=== PATIENT | male | born 1960 | race Caucasian/White ===

== ENCOUNTER 2023-08-31 11:21 | Inpatient (IN) | payer OTHER ==
[~2023-08-31] VITALS: Ht 165.1 cm; Wt 72.1 kg
[2023-08-31 11:52] LABS: BASOPHILS # (AUTO) 0.1 K/UL (0.0-0.2); BASOPHILS % (AUTO) 0.7 % (0.0-2.0); EOSINOPHILS # (AUTO) 0.1 K/uL (0.0-0.7); EOSINOPHILS % (AUTO) 1.7 % (0.0-7.0); HEMATOCRIT 23.4 % (36.7-47.1); HEMOGLOBIN 7.6 g/dL (12.5-16.3); LYMPHOCYTES # (AUTO) 1.5 K/uL (0.8-4.8); LYMPHOCYTES % (AUTO) 18.6 % (20.5-51.5); MEAN CORPUSCULAR HEMOGLOBIN 25.5 uug (23.8-33.4); MEAN CORPUSCULAR HGB CONC 33 g/dL (32.5-36.3); MEAN CORPUSCULAR VOLUME 78.2 fL (73.0-96.2); MONOCYTES # (AUTO) 0.5 K/uL (0.1-1.30); MONOCYTES % (AUTO) 6.7 % (0.0-11.0); NEUTROPHILS # (AUTO) 5.9 K/uL (1.8-8.9); NEUTROPHILS % (AUTO) 72.3 % (38.5-71.5); PLATELET COUNT (AUTO) 389 K/uL (152-348); RED CELL DISTRIBUTION WIDTH 19.1 % (12.1-16.2); WHITE BLOOD COUNT (AUTO) 8.1 K/uL (3.6-10.2)
[2023-08-31] MEDS: IV NORMAL SALINE 1000 ML BAG IV ONE (11:53)
[2023-08-31 12:02] LABS: DIFFERENTIAL COMMENT 1
[2023-08-31 12:06] LABS: CALCIUM 8.3 mg/dL (8.5-10.1); CARBON DIOXIDE 25 mmol/L (21-32); CHLORIDE 102 mmol/L (98-107); CREATININE 1.9 mg/dL (0.6-1.3); GLUCOSE 105 mg/dL (74-106); POTASSIUM 5.7 mmol/L (3.5-5.1); SODIUM SERUM 135 mmol/L (136-145); UREA NITROGEN, BLOOD 55 mg/dL (7-18)
[2023-08-31 12:15] VITALS: O2SAT 96
[2023-08-31 12:35] LABS: ALANINE AMINOTRANSFERASE 151 U/L (16-63); ALBUMIN 2.7 g/dL (3.4-5.0); ALKALINE PHOSPHATASE 281 U/L (50-136); ASPARTATE AMINOTRANSFERASE 43 U/L (15-37); BILIRUBIN,DIRECT 0.2 mg/dL (0.0-0.2); BILIRUBIN,TOTAL 0.4 mg/dL (0.2-1.0); TOTAL PROTEIN, SERUM 7.2 g/dL (6.4-8.2)
[2023-08-31 12:56] LABS: MAGNESIUM 2.3 mg/dL (1.8-2.4)
[2023-08-31] MEDS ORDERED: FUROSEMIDE 20 MG/2 ML VIAL ONE (13:19)
[2023-08-31] MEDS: FUROSEMIDE 20 MG/2 ML VIAL IV ONE (13:30)
[2023-08-31 13:36] LABS: IRON, SERUM 18 ug/dL (50-175)
[2023-08-31 13:38] LABS: *BILIRUBIN,URIN NEGATIVE (NEGATIVE); *BLOOD, URINE 2+ (NEGATIVE); *CLARITY,URINE CLEAR (CLEAR); *COLOR,URINE YELLOW (YELLOW); *KETONES,URINE NEGATIVE (NEGATIVE); *PROTEIN,URINE 2+ (NEGATIVE); *UROBILINOGEN,URINE 0.2 E.U./dl (NORMAL); LEUKOCYTE ESTERASE ,URINE 3+ (NEGATIVE); NITRITE, URINE NEGATIVE (NEGATIVE); UGLUCOSE NEGATIVE (NEGATIVE)
[2023-08-31] MEDS ORDERED: MAGNESIUM HYDROXIDE 30 ML LIQUID UDC PO PRN (13:45)
[2023-08-31] MEDS ORDERED: ACETAMINOPHEN 325 MG TABLET PO PRN (13:45)
[2023-08-31] MEDS ORDERED: REMEDY ESSENTIAL ZINC PASTE 113 GM TP PRN (13:45)
[2023-08-31] MEDS ORDERED: ONDANSETRON 4 MG/2 ML VIAL IV PRN (13:45)
[2023-08-31 13:57] LABS: BACTERIA,URINE MANY /HPF (NONE SEEN); SQUAMOUS EPITHELIAL CELL,UR FEW /HPF (NONE SEEN); WBC,URINE TNTC /HPF (0-3)
[2023-08-31] MEDS ORDERED: ATOR80TA PO (15:47)
[2023-08-31] MEDS ORDERED: AMLO10TA59 PO (15:47)
[2023-08-31] MEDS ORDERED: METF750T46 PO (15:47)
[2023-08-31] MEDS ORDERED: ASPI81TA31 PO (15:47)
[2023-08-31] MEDS ORDERED: TAMS-3 PO (15:47)
[2023-08-31] MEDS ORDERED: FAMO40TA7 PO (15:47)
[2023-08-31] MEDS ORDERED: FOLI1TAB27 PO (15:47)
[2023-08-31] MEDS ORDERED: FERR-68 PO (15:47)
[2023-08-31] MEDS ORDERED: GABA300C PO (15:47)
[2023-08-31] MEDS ORDERED: SENN-175 PO (15:47)
[2023-08-31] MEDS ORDERED: ACET-73 PO (15:47)
[2023-08-31] MEDS ORDERED: BRIM5DRO11 EACHEYE (15:47)
[2023-08-31] MEDS ORDERED: CARV25TA2 PO (15:47)
[2023-08-31 15:50] VITALS: BP 128/77; TEMP 97.6; O2SAT 94
[2023-08-31] MEDS: CEFEPIME HCL 1 G in IV DEXTROSE 5% 50 ML IV SCH (17:10)
[2023-08-31] MEDS: DOCUSATE SODIUM 100 MG CAPSULE PO SCH (17:14)
[2023-08-31 20:00] VITALS: BP 135/67; TEMP 98; O2SAT 93
[2023-08-31] MEDS: HEPARIN SODIUM,PORCINE 5,000 UNITS/ML VIAL SQ SCH (20:47)
[2023-09-01 00:30] VITALS: BP 135/72; TEMP 97.6; O2SAT 97
[2023-09-01] MEDS: TRAMADOL HCL 50 MG TABLET PO PRN (01:30)
[2023-09-01 04:15] VITALS: BP 148/73; TEMP 98; O2SAT 94
[2023-09-01] MEDS: PANTOPRAZOLE SODIUM 40 MG TABLET.DR PO SCH (06:19)
[2023-09-01 07:11] LABS: BASOPHILS # (AUTO) 0.1 K/UL (0.0-0.2); BASOPHILS % (AUTO) 0.9 % (0.0-2.0); EOSINOPHILS # (AUTO) 0.1 K/uL (0.0-0.7); EOSINOPHILS % (AUTO) 1.7 % (0.0-7.0); HEMATOCRIT 23.1 % (36.7-47.1); HEMOGLOBIN 7.8 g/dL (12.5-16.3); LYMPHOCYTES # (AUTO) 1.6 K/uL (0.8-4.8); LYMPHOCYTES % (AUTO) 22.1 % (20.5-51.5); MEAN CORPUSCULAR HEMOGLOBIN 26.2 uug (23.8-33.4); MEAN CORPUSCULAR HGB CONC 34 g/dL (32.5-36.3); MEAN CORPUSCULAR VOLUME 78.1 fL (73.0-96.2); MONOCYTES # (AUTO) 0.5 K/uL (0.1-1.30); MONOCYTES % (AUTO) 7.4 % (0.0-11.0); NEUTROPHILS % (AUTO) 67.9 % (38.5-71.5); PLATELET COUNT (AUTO) 378 K/uL (152-348); RED BLOOD CELL COUNT(AUTO) 2.95 MIL/uL (4.06-5.63); WHITE BLOOD COUNT (AUTO) 7.4 K/uL (3.6-10.2)
[2023-09-01 07:15] LABS: CREATININE 1.9 mg/dL (0.6-1.3); PHOSPHOROUS 4.7 mg/dL (2.5-4.9); POTASSIUM 5.5 mmol/L (3.5-5.1)
[2023-09-01 07:24] LABS: THYROID STIMULATING HORMONE 8.728 mIU/mL (0.358-3.740)
[2023-09-01 07:25] LABS: MAGNESIUM 2.3 mg/dL (1.8-2.4)
[2023-09-01 07:49] LABS: DIFFERENTIAL COMMENT 1
[2023-09-01 07:52] VITALS: BP 131/83; TEMP 97.5; O2SAT 95
[2023-09-01] MEDS ORDERED: DEXTROSE 50% 50 ML DISP.SYRIN IV PRN (09:00)
[2023-09-01] MEDS ORDERED: BRIMONIDINE XX SCH (09:00)
[2023-09-01] MEDS ORDERED: FUROSEMIDE 40 MG/4 ML VIAL IV SCH (09:00)
[2023-09-01] MEDS ORDERED: BRIMONIDINE 0.2% OPHT DROP 10 ML BOTTLE EACHEYE SCH (09:20)
[2023-09-01] MEDS: AMLODIPINE 10 MG TABLET PO SCH (09:43)
[2023-09-01] MEDS: FOLIC ACID 1 MG TABLET PO SCH (09:43)
[2023-09-01] MEDS: CARVEDILOL 25 MG TABLET PO SCH (09:43)
[2023-09-01] MEDS: ASPIRIN 81 MG TAB.CHEW PO SCH (09:43)
[2023-09-01] MEDS: FUROSEMIDE 40 MG/4 ML VIAL IV SCH (09:45)
[2023-09-01] MEDS: SENNOSIDES 1 TABLET PO SCH (09:51)
[2023-09-01] MEDS: BLOOD SUGAR DIAGNOSTIC 1 EACH STRIP VI SCH (12:20)
[2023-09-01] MEDS: INSULIN REGULAR, HUMAN 300 UNIT/3 ML VIAL SQ PRN (12:24)
[2023-09-01] MEDS: BRIMONIDINE 0.2% OPHT DROP 10 ML BOTTLE EACHEYE SCH (12:29)
[2023-09-01 13:35] VITALS: O2SAT 95
[2023-09-01] MEDS: GABAPENTIN 300 MG CAPSULE PO SCH (15:13)
[2023-09-01 16:09] VITALS: BP 143/76; TEMP 97.5; O2SAT 96
[2023-09-01 16:11] LABS: BASOPHILS # (AUTO) 0.2 K/UL (0.0-0.2); BASOPHILS % (AUTO) 2.9 % (0.0-2.0); DIFFERENTIAL COMMENT 0; EOSINOPHILS # (AUTO) 0.1 K/uL (0.0-0.7); EOSINOPHILS % (AUTO) 1.5 % (0.0-7.0); HEMATOCRIT 24.4 % (36.7-47.1); HEMOGLOBIN 7.9 g/dL (12.5-16.3); LYMPHOCYTES # (AUTO) 1.4 K/uL (0.8-4.8); LYMPHOCYTES % (AUTO) 20.5 % (20.5-51.5); MEAN CORPUSCULAR HEMOGLOBIN 25.4 uug (23.8-33.4); MEAN CORPUSCULAR HGB CONC 32 g/dL (32.5-36.3); MEAN CORPUSCULAR VOLUME 78.5 fL (73.0-96.2); MONOCYTES # (AUTO) 0.4 K/uL (0.1-1.30); MONOCYTES % (AUTO) 6.5 % (0.0-11.0); NEUTROPHILS # (AUTO) 4.5 K/uL (1.8-8.9); NEUTROPHILS % (AUTO) 68.6 % (38.5-71.5); PLATELET COUNT (AUTO) 353 K/uL (152-348); WHITE BLOOD COUNT (AUTO) 6.6 K/uL (3.6-10.2)
[2023-09-01 16:24] LABS: ALBUMIN 2.5 g/dL (3.4-5.0); BILIRUBIN,TOTAL 0.3 mg/dL (0.2-1.0); CALCIUM 8.1 mg/dL (8.5-10.1); CREATININE 1.9 mg/dL (0.6-1.3); MAGNESIUM 2.1 mg/dL (1.8-2.4); PHOSPHOROUS 5.5 mg/dL (2.5-4.9); POTASSIUM 5.5 mmol/L (3.5-5.1); TOTAL PROTEIN, SERUM 7.3 g/dL (6.4-8.2)
[2023-09-01 20:32] VITALS: TEMP 97.5
[2023-09-01] MEDS ORDERED: TAMSULOSIN HCL 0.4 MG CAP.SR.24H PO ONE (21:00)
[2023-09-01] MEDS: ATORVASTATIN 40 MG TABLET PO SCH (21:36)
[2023-09-01] MEDS ORDERED: INSULIN REGULAR, HUMAN 300 UNIT/3 ML VIAL ONE (21:59)
[2023-09-02] VITALS (8 sets, daily range): BP systolic 133–148; BP diastolic 70–77; TEMP 97.6–98.2; O2SAT 93–98
[2023-09-02 06:33] LABS: BASOPHILS # (AUTO) 0.1 K/UL (0.0-0.2); BASOPHILS % (AUTO) 0.7 % (0.0-2.0); EOSINOPHILS # (AUTO) 0.2 K/uL (0.0-0.7); EOSINOPHILS % (AUTO) 2.4 % (0.0-7.0); HEMATOCRIT 24.9 % (36.7-47.1); HEMOGLOBIN 8.3 g/dL (12.5-16.3); LYMPHOCYTES # (AUTO) 1.6 K/uL (0.8-4.8); LYMPHOCYTES % (AUTO) 23.3 % (20.5-51.5); MEAN CORPUSCULAR HGB CONC 33 g/dL (32.5-36.3); MEAN CORPUSCULAR VOLUME 77.9 fL (73.0-96.2); MONOCYTES # (AUTO) 0.6 K/uL (0.1-1.30); MONOCYTES % (AUTO) 8.4 % (0.0-11.0); NEUTROPHILS # (AUTO) 4.4 K/uL (1.8-8.9); NEUTROPHILS % (AUTO) 65.2 % (38.5-71.5); PLATELET COUNT (AUTO) 367 K/uL (152-348); RED BLOOD CELL COUNT(AUTO) 3.19 MIL/uL (4.06-5.63); RED CELL DISTRIBUTION WIDTH 19.1 % (12.1-16.2); WHITE BLOOD COUNT (AUTO) 6.8 K/uL (3.6-10.2)
[2023-09-02 06:43] LABS: DIFFERENTIAL COMMENT 1
[2023-09-02 06:51] LABS: ALBUMIN 2.6 g/dL (3.4-5.0); BILIRUBIN,TOTAL 0.3 mg/dL (0.2-1.0); CALCIUM 8.4 mg/dL (8.5-10.1); CREATININE 1.7 mg/dL (0.6-1.3); MAGNESIUM 2.1 mg/dL (1.8-2.4); PHOSPHOROUS 5.9 mg/dL (2.5-4.9); POTASSIUM 5.1 mmol/L (3.5-5.1); TOTAL PROTEIN, SERUM 7.3 g/dL (6.4-8.2)
[2023-09-02] MEDS: FERROUS SULFATE 325 MG TABEC PO SCH (09:45)
[2023-09-02] MEDS: TAMSULOSIN HCL 0.4 MG CAP.SR.24H PO SCH (20:23)
[2023-09-03 00:19] VITALS: BP 137/66; TEMP 97.9; O2SAT 95
[2023-09-03 04:00] VITALS: BP 147/73; TEMP 97.9; O2SAT 95
[2023-09-03 06:42] LABS: BASOPHILS # (AUTO) 0.1 K/UL (0.0-0.2); BASOPHILS % (AUTO) 0.8 % (0.0-2.0); EOSINOPHILS # (AUTO) 0.2 K/uL (0.0-0.7); EOSINOPHILS % (AUTO) 2.3 % (0.0-7.0); HEMATOCRIT 25.9 % (36.7-47.1); HEMOGLOBIN 8.9 g/dL (12.5-16.3); LYMPHOCYTES # (AUTO) 1.7 K/uL (0.8-4.8); LYMPHOCYTES % (AUTO) 23.7 % (20.5-51.5); MEAN CORPUSCULAR HEMOGLOBIN 26.4 uug (23.8-33.4); MEAN CORPUSCULAR HGB CONC 34 g/dL (32.5-36.3); MEAN CORPUSCULAR VOLUME 77.4 fL (73.0-96.2); MONOCYTES # (AUTO) 0.5 K/uL (0.1-1.30); MONOCYTES % (AUTO) 7.1 % (0.0-11.0); NEUTROPHILS # (AUTO) 4.8 K/uL (1.8-8.9); NEUTROPHILS % (AUTO) 66.1 % (38.5-71.5); PLATELET COUNT (AUTO) 407 K/uL (152-348); RED BLOOD CELL COUNT(AUTO) 3.35 MIL/uL (4.06-5.63); RED CELL DISTRIBUTION WIDTH 18.8 % (12.1-16.2); WHITE BLOOD COUNT (AUTO) 7.3 K/uL (3.6-10.2)
[2023-09-03 06:51] LABS: CALCIUM 8.5 mg/dL (8.5-10.1); CREATININE 1.8 mg/dL (0.6-1.3); POTASSIUM 5.1 mmol/L (3.5-5.1)
[2023-09-03 06:56] LABS: MAGNESIUM 1.9 mg/dL (1.8-2.4); PHOSPHOROUS 4.5 mg/dL (2.5-4.9)
[2023-09-03 07:24] LABS: DIFFERENTIAL COMMENT 1
[2023-09-03 07:47] VITALS: BP 144/73; TEMP 97.7
[2023-09-03 12:08] VITALS: BP 135/74; TEMP 97.3; O2SAT 97
[2023-09-03] MEDS ORDERED: FURO40TA5 PO (12:49)
[2023-09-03] MEDS ORDERED: DAPA10TA PO (12:49)
[2023-09-03 16:25] VITALS: BP 120/68; TEMP 97.5; O2SAT 97
[2023-09-04 08:10] LABS: A/G RATIO 0.6 (0.7-1.7); ALBUMIN 2.5 g/dL (2.9-4.4); ALPHA-1-GLOBULIN 0.3 g/dL (0.0-0.4); ALPHA-2-GLOBULIN 0.8 g/dL (0.4-1.0); GAMMA GLOBULIN 2.3 g/dL (0.4-1.8); GLOBULIN, TOTAL 4.4 g/dL (2.2-3.9); M-SPIKE 0.8 g/dL (Not Observed)
== END 2023-09-03 16:00 | disposition home health service (06) | DRG 137 ==
LOC: ER 11:24 → TELE3 14:54 → MEDSURG3 09-03 10:11
PROVIDERS: ADMIT Nurse Practitioner Acute Care; ATTEND Nurse Practitioner Acute Care
DX: J15.69 Pneumonia due to other Gram-negative bacteria (principal); N17.0 Acute kidney failure with tubular necrosis; I50.33 Acute on chronic diastolic (congestive) heart failure; E44.0 Moderate protein-calorie malnutrition; I27.20 Pulmonary hypertension, unspecified; E83.51 Hypocalcemia; D63.8 Anemia in other chronic diseases classified elsewhere; E11.22 Type 2 diabetes mellitus with diabetic chronic kidney disease; E87.5 Hyperkalemia; N40.1 Benign prostatic hyperplasia with lower urinary tract symptoms; R33.8 Other retention of urine; R55 Syncope and collapse; N18.9 Chronic kidney disease, unspecified; N39.0 Urinary tract infection, site not specified; B96.89 Other specified bacterial agents as the cause of diseases classified elsewhere; D75.839 Thrombocytosis, unspecified; Z68.26 Body mass index [BMI] 26.0-26.9, adult; E78.5 Hyperlipidemia, unspecified; K59.00 Constipation, unspecified; E66.9 Obesity, unspecified; N29 Other disorders of kidney and ureter in diseases classified elsewhere; R33.9 Retention of urine, unspecified
CPT/HCPCS: 36415; 70030-TC; 71045; 76770; 78580; 83550; 83605; 83735; 83970; 84100; 84155; 84165; 84443; 84484; 85025; 85730; 93005; 93307; 94640; 94760; A9540; G0378; J0692; J1644; J1815; J1940; J7040